=== PATIENT | female | born 1990 | race Caucasian/White ===

== ENCOUNTER 2022-06-29 10:09 | Oncology outpatient (recurring) (ONCR) | payer OTHER, SELFPAY | END 2022-07-22 23:59 | disposition home or self-care (01) | PROVIDERS: Visit Provider Internal Medicine Hematology & Oncology | DX: C50.912 Malignant neoplasm of unspecified site of left female breast (principal); Z79.818 Long term (current) use of other agents affecting estrogen receptors and estrogen levels; R05.9 Cough, unspecified | CPT/HCPCS: 71046 ==

== ENCOUNTER 2022-09-28 12:25 | Oncology outpatient (recurring) (ONCR) | payer OTHER, BC, SELFPAY ==
[2022-09-28 13:05] LABS: Eosinophils # 0.1 10^3/uL (0.0-0.8); Eosinophils % 3.2 %; Hematocrit 37.7 % (37.0-47.0); Hemoglobin 12.9 g/dL (11.5-15.3); Lymphocytes # 1.2 10^3/uL (0.8-4.8); Lymphocytes % 28.5 %; Mean Corpuscular HGB Conc 34.2 g/dL (30.0-36.0); Mean Corpuscular Hemoglobin 31.4 pg (28.0-34.0); Mean Corpuscular Volume 91.7 fl (81-99); Mean Platelet Volume 10.8 fL (7.4-10.4); Monocytes # 0.5 10^3/uL (0.2-0.9); Monocytes % 11.7 %; Neutrophils # 2.23 10^3/uL (1.8-7.7); Neutrophils % 55.4 %; Nucleated Red Blood Cells % 0 %; Platelet Count 146 10^3/cmm (130-400); Red Blood Count 4.11 10^6/uL (4.1-5.3)
[2022-09-28 13:20] LABS: Alanine Aminotransferase 9 U/L (0-33); Albumin Level 3.9 g/dL (3.5-5.2); Alkaline Phosphatase 84 U/L (35-105); Anion Gap 10.2 (5-19); Aspartate Amino Transferase 17 U/L (0-32); Blood Urea Nitrogen 14 mg/dL (6-20); Calcium 8.9 mg/dL (8.5-10.5); Carbon Dioxide 29 mmol/L (22-29); Chloride 106 mmol/L (98-107); Globulin 2.3 g/dL (1.3-4.6); Glomerular Filtration Rate 83.1 mL/min (90-130); Glucose 99 mg/dL (65-115); Osmolality Calculated 293 mOsm/kg (285-295); Potassium 4.2 mmol/L (3.5-5.1); Sodium 141 mmol/L (136-145); Total Bilirubin 0.2 mg/dL (0.15-1.2); Total Protein 6.2 g/dL (6.6-8.7)
== END 2022-10-20 23:59 | disposition home or self-care (01) ==
PROVIDERS: Visit Provider Internal Medicine Hematology & Oncology
DX: C50.912 Malignant neoplasm of unspecified site of left female breast (principal); Z79.818 Long term (current) use of other agents affecting estrogen receptors and estrogen levels
CPT/HCPCS: 36415; 80053; 85025

== ENCOUNTER 2022-10-13 17:10 | Outpatient (CLI) | payer OTHER, BC, SELFPAY ==
--- NOTE | 2022-10-13 17:15 | US_ITS ---
WS: [id number] Exam: US soft tissue/extremity [id number] Date/Time of Exam: 10/13/2022 5:15 PM Reason For Exam: raised area left axillae scar The left axilla is targeted for ultrasound evaluation. A small hypoechoic smoothly marginated nodular density is seen in the left axilla that measures appro ximately 2.5 x 2.8 mm. This might represent a tiny complex cyst. No suspicious mass or significant ly mphadenopathy is noted in the left axilla. No other significant finding. US/US soft tissue/extremity [id number] IMPRESSION: 1. 2.5 x 2.8 mm hypoechoic density in the left axilla most likely representing a tiny soft tissue cyst. This does not have suspicious appearance however a six -month follow-up for surveillance would be recommended based on the patient's c linical history.
== END 2022-10-13 17:11 | disposition home or self-care (01) ==
LOC: RAD 17:16
PROVIDERS: PCP Nurse Practitioner Family; Visit Provider Nurse Practitioner Family
DX: N63.20 Unspecified lump in the left breast, unspecified quadrant (principal)
CPT/HCPCS: 76882

== ENCOUNTER 2022-10-26 09:42 | Oncology outpatient (recurring) (ONCR) | payer OTHER, BC, SELFPAY ==
[2022-10-26 10:23] LABS: Basophils % 0.8 %; Eosinophils # 0.2 10^3/uL (0.0-0.8); Eosinophils % 4.5 %; Hematocrit 40.2 % (37.0-47.0); Hemoglobin 13.2 g/dL (11.5-15.3); Lymphocytes # 0.9 10^3/uL (0.8-4.8); Lymphocytes % 21.8 %; Mean Corpuscular HGB Conc 32.8 g/dL (30.0-36.0); Mean Corpuscular Hemoglobin 30.1 pg (28.0-34.0); Mean Corpuscular Volume 91.8 fl (81-99); Mean Platelet Volume 11.7 fL (7.4-10.4); Monocytes # 0.3 10^3/uL (0.2-0.9); Neutrophils # 2.58 10^3/uL (1.8-7.7); Neutrophils % 64.6 %; Nucleated Red Blood Cells % 0 %; Platelet Count 130 10^3/cmm (130-400); Red Blood Count 4.38 10^6/uL (4.1-5.3); Red Cell Distribution Width 11.9 % (12.1-15.1)
[2022-10-26 10:47] LABS: Alanine Aminotransferase 8 U/L (0-33); Albumin Level 3.5 g/dL (3.5-5.2); Alkaline Phosphatase 84 U/L (35-105); Anion Gap 10.5 (5-19); Aspartate Amino Transferase 12 U/L (0-32); Blood Urea Nitrogen 11 mg/dL (6-20); Calcium 8.4 mg/dL (8.5-10.5); Carbon Dioxide 26 mmol/L (22-29); Chloride 110 mmol/L (98-107); Globulin 2.6 g/dL (1.3-4.6); Glomerular Filtration Rate 83.1 mL/min (90-130); Glucose 86 mg/dL (65-115); Osmolality Calculated 293 mOsm/kg (285-295); Potassium 4.5 mmol/L (3.5-5.1); Sodium 142 mmol/L (136-145); Total Bilirubin 0.2 mg/dL (0.15-1.2); Total Protein 6.1 g/dL (6.6-8.7)
== END 2022-11-19 23:59 | disposition home or self-care (01) ==
PROVIDERS: Nurse Practitioner Family; Visit Provider Internal Medicine Hematology & Oncology
DX: C50.912 Malignant neoplasm of unspecified site of left female breast (principal)
CPT/HCPCS: 36415; 80053; 85025

== ENCOUNTER 2023-01-25 12:17 | Oncology outpatient (recurring) (ONCR) | payer OTHER, BC, SELFPAY ==
[2023-01-25 12:27] VITALS: BP 124/73; PULSE 74; RESP 18; TEMP 36.5; O2SAT 99
[2023-01-25 12:39] LABS: Eosinophils # 0.2 10^3/uL (0.0-0.8); Eosinophils % 5.3 %; Hematocrit 39.6 % (37.0-47.0); Hemoglobin 13.6 g/dL (11.5-15.3); Lymphocytes # 1.3 10^3/uL (0.8-4.8); Lymphocytes % 32.3 %; Mean Corpuscular HGB Conc 34.3 g/dL (30.0-36.0); Mean Corpuscular Volume 90.2 fl (81-99); Mean Platelet Volume 11.9 fL (7.4-10.4); Monocytes # 0.4 10^3/uL (0.2-0.9); Monocytes % 9.5 %; Neutrophils # 2.06 10^3/uL (1.8-7.7); Neutrophils % 51.6 %; Nucleated Red Blood Cells % 0 %; Platelet Count 111 10^3/cmm (130-400); Red Blood Count 4.39 10^6/uL (4.1-5.3); Red Cell Distribution Width 12.1 % (12.1-15.1)
[2023-01-25 13:00] LABS: Alanine Aminotransferase 11 U/L (0-33); Albumin Level 4.1 g/dL (3.5-5.2); Alkaline Phosphatase 66 U/L (35-105); Anion Gap 12.2 (5-19); Aspartate Amino Transferase 30 U/L (0-32); Blood Urea Nitrogen 14 mg/dL (6-20); Calcium 8.7 mg/dL (8.5-10.5); Carbon Dioxide 24 mmol/L (22-29); Chloride 109 mmol/L (98-107); Globulin 2.3 g/dL (1.3-4.6); Glomerular Filtration Rate 72.6 mL/min (90-130); Glucose 89 mg/dL (65-115); Osmolality Calculated 292 mOsm/kg (285-295); Potassium 4.2 mmol/L (3.5-5.1); Sodium 141 mmol/L (136-145); Total Bilirubin 0.3 mg/dL (0.15-1.2); Total Protein 6.4 g/dL (6.6-8.7)
== END 2023-02-19 23:59 | disposition home or self-care (01) ==
PROVIDERS: Visit Provider Internal Medicine Hematology & Oncology
DX: C50.912 Malignant neoplasm of unspecified site of left female breast (principal)
CPT/HCPCS: 36415; 80053; 85025

== ENCOUNTER 2023-03-27 07:59 | Outpatient (CLI) | payer OTHER, BC, SELFPAY ==
--- NOTE | 2023-03-27 08:00 | US_ITS ---
WS: [id number] ULTRASOUND SOFT TISSUES LEFT axilla HISTORY: Left Axilla - Follow Up COMPARISON: 10/13/2022 TECHNIQUE: 2-D and color Doppler imaging is submitted. No soft tissue mass identified in the LEFT axilla. Again identified is a very tiny cyst in the LEFT a xilla along the scar site which was described on 10/13/2022 with no increase in size. Maximum diameter of 3 mm. IMPRESSION: No soft tissue mass or abnormal vascularity in the LEFT axilla. Stable 3 mm cyst.
== END 2023-03-27 08:00 | disposition home or self-care (01) ==
PROVIDERS: PCP Nurse Practitioner Family; Visit Provider Internal Medicine Hematology & Oncology
DX: C50.912 Malignant neoplasm of unspecified site of left female breast (principal); L72.9 Follicular cyst of the skin and subcutaneous tissue, unspecified
CPT/HCPCS: 76882

== ENCOUNTER 2023-04-03 14:50 | Oncology outpatient (recurring) (ONCR) | payer OTHER, BC, SELFPAY ==
[2023-04-03 15:00] VITALS: BP 126/80; PULSE 71; RESP 18; TEMP 36.7; O2SAT 99
[2023-04-03 15:15] LABS: Basophils % 0.5 %; Eosinophils # 0.1 10^3/uL (0.0-0.8); Eosinophils % 2.5 %; Lymphocytes # 1.7 10^3/uL (0.8-4.8); Mean Corpuscular HGB Conc 34.1 g/dL (30-55); Mean Corpuscular Hemoglobin 31.4 pg (27-33); Mean Corpuscular Volume 92.3 fl (85-98); Mean Platelet Volume 10.5 fL (7.4-10.4); Monocytes # 0.5 10^3/uL (0.2-0.9); Monocytes % 8.3 %; Neutrophils # 3.39 10^3/uL (1.8-7.7); Neutrophils % 59.5 %; Nucleated Red Blood Cells % 0 %; Platelet Count 147 10^3/cmm (157-399); Red Blood Count 4.01 10^6/uL (3.85-5.65); Red Cell Distribution Width 11.9 % (12.1-15.1); White Blood Count 5.69 10^3/uL (3.29-11.43)
== END 2023-04-21 23:59 | disposition home or self-care (01) ==
PROVIDERS: Internal Medicine Medical Oncology; PCP Nurse Practitioner Family; Visit Provider Internal Medicine Hematology & Oncology
DX: C50.912 Malignant neoplasm of unspecified site of left female breast (principal); Z53.9 Procedure and treatment not carried out, unspecified reason
CPT/HCPCS: 36415; 85025

== ENCOUNTER → 2023-05-08 15:16 | Outpatient (BNVA) | payer OTHER, BC, SELFPAY | PROVIDERS: PCP Nurse Practitioner Family; Visit Provider Nurse Practitioner Women's Health | DX: N83.202 Unspecified ovarian cyst, left side (principal); N83.9 Noninflammatory disorder of ovary, fallopian tube and broad ligament, unspecified | CPT/HCPCS: 76830 ==

== ENCOUNTER 2023-05-22 16:00 | Outpatient (CLI) | payer OTHER, BC, SELFPAY | END 2023-05-22 16:01 | disposition home or self-care (01) | LOC: SLEEP 05-23 12:10 | PROVIDERS: PCP Nurse Practitioner Family; Visit Provider Nurse Practitioner Family | DX: G47.34 Idiopathic sleep related nonobstructive alveolar hypoventilation (principal); R53.83 Other fatigue | CPT/HCPCS: G0399 ==

== ENCOUNTER 2023-07-03 14:01 | Oncology outpatient (recurring) (ONCR) | payer OTHER, BC, SELFPAY ==
[2023-07-03 14:47] VITALS: BP 115/69; PULSE 66; RESP 16; TEMP 36.4; O2SAT 98
[2023-07-03 15:01] LABS: Basophils % 0.6 %; Eosinophils # 0.1 10^3/uL (0.0-0.8); Eosinophils % 1.2 %; Hematocrit 38.5 % (36-47); Lymphocytes # 1.4 10^3/uL (0.8-4.8); Lymphocytes % 28.2 %; Mean Corpuscular HGB Conc 33.8 g/dL (30-55); Mean Corpuscular Hemoglobin 30.7 pg (27-33); Mean Corpuscular Volume 90.8 fl (85-98); Mean Platelet Volume 11.9 fL (7.4-10.4); Monocytes # 0.4 10^3/uL (0.2-0.9); Monocytes % 8.3 %; Neutrophils # 3.05 10^3/uL (1.8-7.7); Neutrophils % 61.5 %; Nucleated Red Blood Cells % 0 %; Platelet Count 154 10^3/cmm (157-399); Red Blood Count 4.24 10^6/uL (3.85-5.65); Red Cell Distribution Width 12.2 % (12.1-15.1); White Blood Count 4.96 10^3/uL (3.29-11.43)
[2023-07-03 15:30] LABS: Alanine Aminotransferase 31 U/L (0-33); Albumin Level 4.1 g/dL (3.5-5.2); Alkaline Phosphatase 70 U/L (35-105); Aspartate Amino Transferase 28 U/L (0-32); Blood Urea Nitrogen 13 mg/dL (6-20); Calcium 8.9 mg/dL (8.5-10.5); Carbon Dioxide 22 mmol/L (22-29); Chloride 104 mmol/L (98-107); Globulin 2.6 g/dL (1.3-4.6); Glomerular Filtration Rate 82.6 mL/min (90-130); Glucose 90 mg/dL (65-115); Osmolality Calculated 284 mOsm/kg (285-295); Sodium 137 mmol/L (136-145); Total Bilirubin 0.3 mg/dL (0.15-1.2); Total Protein 6.7 g/dL (6.6-8.7)
== END 2023-07-22 23:59 | disposition home or self-care (01) ==
PROVIDERS: Internal Medicine Medical Oncology; PCP Nurse Practitioner Family; Visit Provider Internal Medicine Hematology & Oncology
DX: C50.912 Malignant neoplasm of unspecified site of left female breast (principal); L29.9 Pruritus, unspecified; Z79.899 Other long term (current) drug therapy
CPT/HCPCS: 36415; 76830; 80053; 85025

== ENCOUNTER 2023-10-09 14:16 | Oncology outpatient (recurring) (ONCR) | payer OTHER, BC, SELFPAY ==
[2023-10-09 14:52] LABS: Basophils % 0.8 %; Hematocrit 40.9 % (36-47); Lymphocytes # 1.4 10^3/uL (0.8-4.8); Lymphocytes % 28.2 %; Mean Corpuscular HGB Conc 33.3 g/dL (30-55); Mean Corpuscular Hemoglobin 31.2 pg (27-33); Mean Corpuscular Volume 93.8 fl (85-98); Mean Platelet Volume 10.9 fL (7.4-10.4); Monocytes # 0.4 10^3/uL (0.2-0.9); Monocytes % 7.2 %; Neutrophils # 3.11 10^3/uL (1.8-7.7); Neutrophils % 63.6 %; Nucleated Red Blood Cells % 0 %; Platelet Count 155 10^3/cmm (157-399); Red Blood Count 4.36 10^6/uL (3.85-5.65); Red Cell Distribution Width 12.6 % (12.1-15.1); White Blood Count 4.89 10^3/uL (3.29-11.43)
[2023-10-09 15:09] LABS: Alanine Aminotransferase 11 U/L (0-33); Albumin Level 4.2 g/dL (3.5-5.2); Alkaline Phosphatase 69 U/L (35-105); Aspartate Amino Transferase 16 U/L (0-32); Blood Urea Nitrogen 12 mg/dL (6-20); Calcium 8.8 mg/dL (8.5-10.5); Carbon Dioxide 25 mmol/L (22-29); Chloride 106 mmol/L (98-107); Globulin 2.8 g/dL (1.3-4.6); Glomerular Filtration Rate 82.6 mL/min (90-130); Glucose 109 mg/dL (65-115); Osmolality Calculated 290 mOsm/kg (285-295); Sodium 140 mmol/L (136-145); Total Bilirubin 0.3 mg/dL (0.15-1.2)
== END 2023-10-21 23:59 | disposition home or self-care (01) ==
PROVIDERS: PCP Nurse Practitioner Family; Visit Provider Internal Medicine Medical Oncology
DX: C50.912 Malignant neoplasm of unspecified site of left female breast (principal)
CPT/HCPCS: 36415; 76830; 80053; 85025

== ENCOUNTER 2023-10-26 14:14 | Outpatient (CLI) | payer OTHER, BC, MEDICAID, SELFPAY ==
--- NOTE | 2023-10-26 14:15 | CT_ITS ---
WS: [id number] CTA OF THE CHEST WITH PULMONARY EMBOLISM PROTOCOL TECHNIQUE: High-resolution contrast enhanced CTA of the chest with coronal and sagittal reformatted i osmins with pulmonary embolism protocol. MIP images are also reviewed. CLINICAL INFORMATION: shortness of breath COMPARISON: None. DLP: 379.[address] scans at [facility] use at least one of these dose optimization techniques: automated e xposure control; mA and/or kV adjustment per patient size (includes targeted exams where dose is matc hed to clinical indication); or iterative reconstruction. FINDINGS: Proximal main pulmonary arteries are normal. Normal segmental and subsegmental pulmonary arteries. No evidence of pulmonary embolus. Normal caliber thoracic aorta. No mediastinal or hilar lymphadenopathy. No axillary lymphadenopathy. Bilateral breast implants. Normal GE junction. Adrenal glands are normal. Lungs are well aerated. No acute pulmonary infiltrates. No focal pneumonia or pleural fluid. No suspicious pulmonary parenchymal abnormalities. Normal thoracic spine. IMPRESSION: 1. No evidence of pulmonary embolus. 2. Lungs are well aerated. No acute pulmonary infiltrates. 3. No mediastinal or hilar lymphadenopathy. 4. No acute chest findings.
[2023-10-26] MEDS: iohexol 350 mg/mL 500 mL Btl (per mL) IV (14:39)
== END 2023-10-26 14:15 | disposition home or self-care (01) ==
PROVIDERS: PCP Nurse Practitioner Family; Visit Provider Internal Medicine Medical Oncology
DX: R06.02 Shortness of breath (principal); R07.9 Chest pain, unspecified
CPT/HCPCS: 71275; Q9967

== ENCOUNTER → 2023-12-04 16:20 | Outpatient (BNVA) | payer OTHER, BC, SELFPAY | PROVIDERS: PCP Nurse Practitioner Family; Visit Provider Obstetrics & Gynecology | DX: N93.9 Abnormal uterine and vaginal bleeding, unspecified (principal) | CPT/HCPCS: 81025; 84702 ==

== ENCOUNTER 2024-04-07 13:00 | Oncology outpatient (recurring) (ONCR) | payer OTHER, MEDICAID, SELFPAY ==
[2024-04-07 13:24] LABS: Basophils % 0.7 %; Lymphocytes # 1.3 10^3/uL (0.8-4.8); Lymphocytes % 28.2 %; Mean Corpuscular HGB Conc 33.3 g/dL (30-55); Mean Corpuscular Hemoglobin 31.4 pg (27-33); Mean Corpuscular Volume 94.3 fl (85-98); Mean Platelet Volume 10.3 fL (7.4-10.4); Monocytes # 0.4 10^3/uL (0.2-0.9); Monocytes % 7.7 %; Neutrophils # 2.87 10^3/uL (1.8-7.7); Neutrophils % 63.2 %; Nucleated Red Blood Cells % 0 %; Platelet Count 156 10^3/cmm (157-399); Red Blood Count 4.24 10^6/uL (3.85-5.65); Red Cell Distribution Width 11.9 % (12.1-15.1); White Blood Count 4.54 10^3/uL (3.29-11.43)
[2024-04-07 13:42] LABS: Alanine Aminotransferase 9 U/L (0-33); Albumin Level 4.1 g/dL (3.5-5.2); Alkaline Phosphatase 58 U/L (35-105); Anion Gap 13.1 (5-19); Aspartate Amino Transferase 14 U/L (0-32); Blood Urea Nitrogen 11 mg/dL (6-20); Calcium 8.6 mg/dL (8.5-10.5); Carbon Dioxide 25 mmol/L (22-29); Chloride 107 mmol/L (98-107); Creatinine Clr Calc Pharmacy 96.3479; Globulin 2.5 g/dL (1.3-4.6); Glomerular Filtration Rate 63.5 mL/min (90-130); Glucose 117 mg/dL (65-115); Osmolality Calculated 292 mOsm/kg (285-295); Potassium 4.1 mmol/L (3.5-5.1); Sodium 141 mmol/L (136-145); Total Bilirubin 0.3 mg/dL (0.15-1.2); Total Protein 6.6 g/dL (6.6-8.7)
[2024-04-07 17:29] LABS: HCG, Serum Qual Negative (Negative)
== END 2024-04-21 23:59 | disposition home or self-care (01) ==
LOC: ONCMED 13:02
PROVIDERS: Nurse Practitioner; PCP Nurse Practitioner Family; Visit Provider Internal Medicine Medical Oncology
DX: C50.912 Malignant neoplasm of unspecified site of left female breast (principal); N91.2 Amenorrhea, unspecified
CPT/HCPCS: 36415; 80053; 84703; 85025

== ENCOUNTER 2024-05-05 11:41 | Outpatient (CLI) | payer OTHER, MEDICAID, SELFPAY ==
--- NOTE | 2024-05-05 12:00 | US_ITS ---
WS: [id number] ULTRASOUND LEFT BREAST HISTORY: left abnormal mass @ 3 o'clock position at scar line, status post mastectomy. COMPARISON: None available. TECHNIQUE: 2-D and Doppler. Ultrasound is directed to the palpable area by the patient. Normal appearance of the soft tissue supe rficial to the implant. There is no mass identified or distortion. The dermis is normal in caliber an d thickness. US/US breast LT limited* [id number] IMPRESSION: BI-RADS: 1- Negative FOLLOW-UP: See Report No follow-up necessary.
== END 2024-05-05 11:42 | disposition home or self-care (01) ==
LOC: RAD 11:42
PROVIDERS: PCP Nurse Practitioner Family; Visit Provider Nurse Practitioner
DX: C50.212 Malignant neoplasm of upper-inner quadrant of left female breast (principal); Z98.82 Breast implant status; Z98.890 Other specified postprocedural states
CPT/HCPCS: 76642

== ENCOUNTER 2024-07-30 09:27 | Oncology outpatient (recurring) (ONCR) | payer MEDICAID, SELFPAY ==
[2024-07-30 10:28] LABS: Basophils # 0.1 10^3/uL (0.0-0.1); Basophils % 0.8 %; Eosinophils # 0.2 10^3/uL (0.0-0.8); Eosinophils % 2.8 %; Hematocrit 42.4 % (36-47); Lymphocytes # 1.9 10^3/uL (0.8-4.8); Lymphocytes % 29.6 %; Mean Corpuscular HGB Conc 33.3 g/dL (30-55); Mean Corpuscular Volume 93.2 fl (85-98); Mean Platelet Volume 9.8 fL (7.4-10.4); Monocytes # 0.7 10^3/uL (0.2-0.9); Monocytes % 10.1 %; Neutrophils # 3.68 10^3/uL (1.8-7.7); Neutrophils % 56.4 %; Nucleated Red Blood Cells % 0 %; Platelet Count 174 10^3/cmm (157-399); Red Blood Count 4.55 10^6/uL (3.85-5.65); Red Cell Distribution Width 11.9 % (12.1-15.1); White Blood Count 6.52 10^3/uL (3.29-11.43)
[2024-07-30 10:44] LABS: Alanine Aminotransferase 9 U/L (0-33); Albumin Level 4.1 g/dL (3.5-5.2); Alkaline Phosphatase 58 U/L (35-105); Aspartate Amino Transferase 18 U/L (0-32); Blood Urea Nitrogen 12 mg/dL (6-20); Calcium 8.6 mg/dL (8.5-10.5); Carbon Dioxide 25 mmol/L (22-29); Chloride 103 mmol/L (98-107); Globulin 2.5 g/dL (1.3-4.6); Glomerular Filtration Rate 82.1 mL/min (90-130); Glucose 95 mg/dL (65-115); Osmolality Calculated 290 mOsm/kg (285-295); Sodium 140 mmol/L (136-145); Total Bilirubin 0.3 mg/dL (0.15-1.2); Total Protein 6.6 g/dL (6.6-8.7)
[2024-07-30 10:48] LABS: Anion Gap 16.2 (5-19); Potassium 4.2 mmol/L (3.5-5.1)
[2024-07-30 10:49] LABS: Lactate Dehydrogenase 202 U/L (135-214)
== END 2024-08-22 23:59 | disposition home or self-care (01) ==
PROVIDERS: PCP Nurse Practitioner Family; Visit Provider Internal Medicine
DX: C50.912 Malignant neoplasm of unspecified site of left female breast (principal)
CPT/HCPCS: 36415; 80053; 83615; 85025

== ENCOUNTER 2024-08-11 15:21 | Outpatient (CLI) | payer MEDICAID, SELFPAY ==
--- NOTE | 2024-08-11 15:30 | XR_ITS ---
WS: [id number] DEXA (DUAL ENERGY X-RAY ABSORPTIOMETRY) Bone mineral density was performed using a [employer] machine. HISTORY: breast cancer COMPARISON: None available. Lumbar spine BMD (L1-L4): 1.117 g/cm2 T score: -0.5 Z score: -1.7 Total hip BMD: Left: 1.010 g/cm2. T score: 0.0 Z score: -0.7 Right: 0.952 g/cm2. T score: -0.4 Z score: -1.1 XR/XR DEXA axial skeleton* [id number] IMPRESSION: NORMAL BONE MINERAL DENSITY based upon the WHO classification for females.
== END 2024-08-11 15:22 | disposition home or self-care (01) ==
LOC: RAD 15:21
PROVIDERS: PCP Nurse Practitioner Family; Visit Provider Internal Medicine
DX: C50.912 Malignant neoplasm of unspecified site of left female breast (principal)
CPT/HCPCS: 77080

== ENCOUNTER 2024-10-29 10:07 | Oncology outpatient (recurring) (ONCR) | payer SELFPAY ==
[2024-10-29 10:37] LABS: Basophils # 0.1 10^3/uL (0.0-0.1); Basophils % 0.9 %; Eosinophils # 0.3 10^3/uL (0.0-0.8); Eosinophils % 4.7 %; Hematocrit 41.2 % (36-47); Lymphocytes # 1.7 10^3/uL (0.8-4.8); Lymphocytes % 28.9 %; Mean Corpuscular Hemoglobin 31.3 pg (27-33); Mean Corpuscular Volume 94.9 fl (85-98); Mean Platelet Volume 9.8 fL (7.4-10.4); Monocytes # 0.5 10^3/uL (0.2-0.9); Monocytes % 8.4 %; Neutrophils # 3.22 10^3/uL (1.8-7.7); Neutrophils % 56.6 %; Nucleated Red Blood Cells % 0 %; Platelet Count 149 10^3/cmm (157-399); Red Blood Count 4.34 10^6/uL (3.85-5.65); Red Cell Distribution Width 12.4 % (12.1-15.1)
[2024-10-29 10:54] LABS: Alanine Aminotransferase 13 U/L (0-33); Albumin Level 3.9 g/dL (3.5-5.2); Alkaline Phosphatase 61 U/L (35-105); Anion Gap 14.3 (5-19); Aspartate Amino Transferase 17 U/L (0-32); Blood Urea Nitrogen 12 mg/dL (6-20); Calcium 8.6 mg/dL (8.5-10.5); Carbon Dioxide 23 mmol/L (22-29); Chloride 108 mmol/L (98-107); Creatinine Clr Calc Pharmacy 113.2974; Globulin 2.5 g/dL (1.3-4.6); Glomerular Filtration Rate 71.7 mL/min (90-130); Glucose 99 mg/dL (65-115); Lactate Dehydrogenase 170 U/L (135-214); Osmolality Calculated 292 mOsm/kg (285-295); Potassium 4.3 mmol/L (3.5-5.1); Sodium 141 mmol/L (136-145); Total Bilirubin 0.2 mg/dL (0.15-1.2); Total Protein 6.4 g/dL (6.6-8.7)
== END 2024-11-19 23:59 | disposition home or self-care (01) ==
PROVIDERS: PCP Nurse Practitioner Family; Visit Provider Internal Medicine
DX: C50.912 Malignant neoplasm of unspecified site of left female breast (principal); Z17.0 Estrogen receptor positive status [ER+]; Z87.891 Personal history of nicotine dependence
CPT/HCPCS: 36415; 80053; 83615; 85025

== ENCOUNTER 2025-01-28 10:04 | Oncology outpatient (recurring) (ONCR) | payer MEDICAID, SELFPAY ==
[2025-01-28 10:26] LABS: Hematocrit 41.1 % (36-47); Hemoglobin 13.80 g/dL (11.27-16.99); Mean Corpuscular HGB Conc 33.6 g/dL (30-55); Mean Corpuscular Hemoglobin 30.5 pg (27-33); Mean Corpuscular Volume 90.7 fl (85-98); Nucleated Red Blood Cells % 0 %; Platelet Count 169 10^3/cmm (157-399); Red Blood Count 4.53 10^6/uL (3.85-5.65); White Blood Count 5.62 10^3/uL (3.29-11.43)
[2025-01-28 10:45] LABS: Alanine Aminotransferase 10 U/L (0-33); Albumin Level 4.0 g/dL (3.5-5.2); Alkaline Phosphatase 54 U/L (35-105); Anion Gap 15.2 (5-19); Aspartate Amino Transferase 13 U/L (0-32); Blood Urea Nitrogen 11 mg/dL (6-20); Calcium 8.9 mg/dL (8.5-10.5); Carbon Dioxide 24 mmol/L (22-29); Chloride 103 mmol/L (98-107); Creatinine Clr Calc Pharmacy 113.8019; Globulin 2.7 g/dL (1.3-4.6); Glucose 97 mg/dL (65-115); Osmolality Calculated 285 mOsm/kg (285-295); Potassium 4.2 mmol/L (3.5-5.1); Sodium 138 mmol/L (136-145); Total Protein 6.7 g/dL (6.6-8.7)
--- NOTE | 2025-01-28 13:00 | USCV_ITS ---
Lina Nelson Age: 34 Gender: F : 1990 Exam Date: 01/28/2025 13:14 Ordering Phys: Stacia Renya NP Technologist: NILE [place]am Location[place] [facility] [place]: rt leg pain HISTORY: Lower extremity pain-RT PROCEDURES: Venous duplex imaging was performed in only the right lower extremity. The following venous structures were evaluated: common femoral vein, profunda vein, proximal portion of the greater saphenous vein, superficial femoral vein, and the popliteal vein. In addition, the posterior tibial and peroneal trunk were evaluated. FINDINGS: No evidence of DVT seen in any vessel visualized at this time. CONCLUSIONS No evidence of right lower extremity DVT. Matheus Weems MD (Electronically Signed) Final Date: 28 January 2025 15:44 S
== END 2025-02-19 23:59 | disposition home or self-care (01) ==
PROVIDERS: PCP Nurse Practitioner Family; Visit Provider Internal Medicine
DX: C50.912 Malignant neoplasm of unspecified site of left female breast (principal); M79.89 Other specified soft tissue disorders
CPT/HCPCS: 36415; 80053; 83615; 85025; 93971